=== PATIENT | male | born 1970 | race Caucasian/White ===

== ENCOUNTER 2021-04-16 09:09 | Outpatient (CLI) | payer BC ==
[2021-04-16 11:25] LABS: #Eosinphils 0.1 thou/uL (0.0-0.7); #Lymphocytes 1.2 thou/uL (1.20-3.40); #Monocytes 0.6 thou/uL (0.11-0.59); #Neutrophils 5.4 thou/uL (1.40-6.50); %Basophils 0.6 % (0.0-1.0); %Eosinophils 1.1 % (0.0-10.0); %Lymphocytes 16.5 % (21.0-51.0); %Monocytes 7.9 % (0.0-10.0); Hemoglobin 14.7 g/dL (14.0-18.0); Mean Corpuscular HGB CONC 33.2 g/dL (32.0-36.0); Mean Corpuscular Hemoglobin 32.9 pg (27.0-31.0); Mean Corpuscular Volume 99.2 fL (78.0-98.0); Mean Platelet Volume 9.2 fL (7.4-10.4); Platelet Count 198 thou/uL (130-400); RBC Distribution Width 12.6 % (11.5-14.5); Red Blood Cell (RBC) Count 4.47 mill/uL (4.70-6.10); White Blood Cell (WBC) Count 7.4 thou/uL (4.8-10.8)
[2021-04-16 12:03] LABS: ALT (SGPT) 20 U/L (8-55); AST (SGOT) 20 U/L (5-34); Albumin 4.8 g/dL (3.5-5.0); Alkaline Phosphatase 62 U/L (40-110); Anion Gap 12 mmol/L (10-20); BUN (Urea Nitrogen) 15 mg/dL (8.9-20.6); Calc. Creatinine Clearance 0 mL/min (70-130); Calcium 9.8 mg/dL (7.8-10.44); Carbon Dioxide 29 mmol/L (22-29); Chloride 104 mmol/L (98-107); Globulin 2.5 g/dL (2.4-3.5); Glucose 105 mg/dL (70-105); Potassium 4.3 mmol/L (3.5-5.1); Protein, Total 7.3 g/dL (6.0-8.3); Sodium 141 mmol/L (136-145)
[2021-04-16 12:14] LABS: HIV (1/2) Antibody/Antigen Non-Reactive (NonReactive); HIV 1/2 INDEX 0.24 S/CO (<1.00); Hep C IgG Ab Non-Reactive (NonReactive); Hep C Index 0.57 S/CO (0-0.79)
== END 2021-04-16 09:10 | disposition home or self-care (01) ==
LOC: SCSLAB 09:09
PROVIDERS: ATTEND Family Medicine
DX: Z11.59 Encounter for screening for other viral diseases (principal); Z20.6 Contact with and (suspected) exposure to human immunodeficiency virus [HIV]; Z79.899 Other long term (current) drug therapy
CPT/HCPCS: 36415; 80053; 85025; 86803; 87389

== ENCOUNTER 2022-01-22 13:06 | Outpatient (CLI) | payer BC ==
[2022-01-22] MEDS ORDERED: Magnevist 469MG/ML 20 ML VIAL ONE (15:25)
== END 2022-01-22 13:07 | disposition home or self-care (01) ==
LOC: MRI 13:06
PROVIDERS: ATTEND Psychiatry & Neurology Neurology
DX: R55 Syncope and collapse (principal)
CPT/HCPCS: 70553; 95816; 95957; A9579